=== PATIENT | male | born 2000 | race Hispanic/Latino ===

== ENCOUNTER 2024-09-28 13:50 | Emergency (ER) | payer OTHER ==
[~2024-09-28] VITALS: Ht 172.7 cm; Wt 82.4 kg
[2024-09-28 17:32] VITALS: BP 131/69; TEMP 98; O2SAT 97
== END 2024-09-28 17:33 | disposition home or self-care (01) ==
LOC: M ED 13:50
DX: M61.461 Other calcification of muscle, right lower leg (principal)